=== PATIENT | female | born 1935 | race Caucasian/White ===

== ENCOUNTER 2021-06-20 18:25 | Observation (INO) | payer MEDICARE ==
[~2021-06-20] VITALS: Ht 160 cm; Wt 62.1 kg
[~2021-06-20 18:25] MED LIST: ALBUTEROL0.63 MG/3; AZELASTINE137 MCG/0.; BUPROPION HCL100 MG PO; CALCIUM + VITA1 EACH; DULERA 100 MCG/13 GM; FLUTICASONE PRO16 GM; HYDROCORTISONE28 GM; LEVOTHYROXINE75 MCG PO; NIACIN500 M1 PO; PANTOPRAZOLE SO40 MG PO; PREDNISONE20 MG PO; PREMARIN42.5 GM VG; QUINAPRIL HCL20 MG PO; VITAMIN B-121000 MC1 PO
[2021-06-20 19:06] LABS: BASOPHILS % 0.4 % (0.0-1.0); EOSINOPHILS # (AUTO) 0.2 (0.0-0.4); EOSINOPHILS % 2.6 % (0.0-6.0); HEMATOCRIT 33.8 % (34.2-44.1); LYMPHOCYTES # (AUTO) 2.3 (1.0-3.2); LYMPHOCYTES % 31.2 % (18.0-39.1); MEAN CORPUSCULAR HEMOGLOBIN 30.9 pg (28-32); MEAN CORPUSCULAR HGB CONC 32.5 g/dL (31-35); MEAN CORPUSCULAR VOLUME 94.9 fL (81-99); MONOCYTES # (AUTO) 0.7 (0.2-0.8); MONOCYTES % 9.8 % (4.4-11.3); NEUTROPHILS % 55.6 % (38.7-80.0); PLATELET COUNT 164 x10e3/uL (140-360); RED BLOOD COUNT 3.56 x10e6/uL (3.6-5.1); RED CELL DISTRIBUTION WIDTH 12.4 % (11.7-14.4)
[2021-06-20 19:15] LABS: INR 1.35; PROTHROMBIN TIME 16.9 seconds (11.9-14.5)
[2021-06-20 19:16] LABS: PARTIAL THROMBOPLASTIN TIME 34.3 seconds (23.8-35.5)
[2021-06-20 19:27] LABS: ALBUMIN 4.3 g/dL (3.5-5.0); ALBUMIN/GLOBULIN RATIO 1.5 (0.8-2.0); ANION GAP 14.2 mmol/L (8-16); CALCIUM 9.3 mg/dL (8.4-10.2); CREATININE, SERUM 1.34 mg/dL (0.57-1.11); POTASSIUM 4.2 mmol/L (3.5-5.1)
[2021-06-20 19:35] LABS: CREATINE KINASE MB 1.6 ng/mL (0-5.0)
[2021-06-20] MEDS ORDERED: ONDANSETRON HCL INJ 2MG/ML 2ML 2 MG/ML VIAL IV PRN (20:30)
[2021-06-20] MEDS ORDERED: CLONIDINE HCL 0.1 MG TAB PO PRN (21:30)
[2021-06-20] MEDS ORDERED: ACETAMINOPHEN 325 MG TAB PO PRN (21:30)
[2021-06-20] MEDS: ISOSORBIDE DINITRATE 20 MG TAB PO SCH (21:42)
[2021-06-20] MEDS: HYDRALAZINE HCL 25 MG TAB PO SCH (21:43)
[2021-06-20] MEDS: CARVEDILOL 3.125 MG TAB PO SCH (21:43)
[2021-06-20] MEDS ORDERED: ELIQUIS5 MG PO (22:08)
[2021-06-20] MEDS ORDERED: ASCORBIC ACID500 M2 PO (22:08)
[2021-06-20] MEDS ORDERED: CARVEDILOL12.5 MG PO (22:08)
[2021-06-20] MEDS ORDERED: CHLORTHALIDONE25 MG (22:08)
[2021-06-20] MEDS ORDERED: ATORVASTATIN CA20 MG PO (22:08)
[2021-06-20] MEDS ORDERED: PROPAFENONE HC325 MG PO (22:08)
[2021-06-20] MEDS ORDERED: LOSARTAN POTAS100 MG PO (22:08)
[2021-06-20 23:12] VITALS: BP 123/55
[2021-06-21 04:54] VITALS: BP 122/59
[2021-06-21 05:32] LABS: BASOPHILS % 0.6 % (0.0-1.0); EOSINOPHILS # (AUTO) 0.2 (0.0-0.4); EOSINOPHILS % 3.3 % (0.0-6.0); HEMATOCRIT 28.3 % (34.2-44.1); HEMOGLOBIN 9.2 g/dL (12.0-16.0); LYMPHOCYTES # (AUTO) 1.7 (1.0-3.2); LYMPHOCYTES % 32.5 % (18.0-39.1); MEAN CORPUSCULAR HEMOGLOBIN 30.9 pg (28-32); MEAN CORPUSCULAR HGB CONC 32.5 g/dL (31-35); MONOCYTES # (AUTO) 0.5 (0.2-0.8); MONOCYTES % 9.3 % (4.4-11.3); NEUTROPHILS # (AUTO) 2.8 (2.1-6.9); NEUTROPHILS % 54.1 % (38.7-80.0); PLATELET COUNT 139 x10e3/uL (140-360); RED BLOOD COUNT 2.98 x10e6/uL (3.6-5.1); RED CELL DISTRIBUTION WIDTH 12.5 % (11.7-14.4)
[2021-06-21] MEDS: LEVOTHYROXINE SODIUM 75 MCG TAB PO SCH (06:01)
[2021-06-21 06:03] LABS: ANION GAP 12.6 mmol/L (8-16); CALCIUM 8.6 mg/dL (8.4-10.2); CREATININE, SERUM 1.25 mg/dL (0.57-1.11); MAGNESIUM 1.5 MG/DL (1.3-2.1); POTASSIUM 3.6 mmol/L (3.5-5.1)
[2021-06-21 06:04] LABS: CHOL/HDL RATIO 4.6 (3.0-3.6)
[2021-06-21 06:29] LABS: THYROID STIMULATING HORMONE 4.168 uIU/mL (0.350-4.940)
[2021-06-21 07:42] VITALS: BP 130/48
[2021-06-21] MEDS ORDERED: INFLUENZA VIRUS VAC SPLIT INJ 0.5 ML SYR IM SCH (08:00)
[2021-06-21] MEDS ORDERED: PNEUMOCOCCAL VACCINE POLYVALENT 23 MCG/0.5 ML VIAL IM SCH (08:00)
[2021-06-21] MEDS: CARVEDILOL 3.125 MG TAB PO SCH ×2 (08:58→16:40)
[2021-06-21] MEDS: HYDRALAZINE HCL 25 MG TAB PO SCH (08:58)
[2021-06-21] MEDS: ISOSORBIDE DINITRATE 20 MG TAB PO SCH (08:59)
[2021-06-21 10:16] VITALS: BP 130/48
[2021-06-21 11:57] VITALS: BP 137/51
[2021-06-21 15:46] VITALS: BP 154/56
[2021-06-21 20:00] VITALS: BP 152/53
[2021-06-21] MEDS: APIXAB 2.5 MG TABLET PO SCH (20:30)
[2021-06-21] MEDS ORDERED: CARVEDILOL 3.125 MG TAB PO ONE (20:45)
[2021-06-21] MEDS ORDERED: ATORVASTATIN 20 MG TAB PO SCH (21:00)
[2021-06-21] MEDS: LOSARTAN POTASSIUM 25 MG TAB PO SCH (21:45)
[2021-06-22] VITALS (10 sets, daily range): BP systolic 116–174; BP diastolic 53–101
[2021-06-22] MEDS: LEVOTHYROXINE SODIUM 75 MCG TAB PO SCH (05:38)
[2021-06-22] MEDS: LOSARTAN POTASSIUM 25 MG TAB PO SCH ×2 (08:23→18:01)
[2021-06-22] MEDS: CARVEDILOL 3.125 MG TAB PO SCH ×2 (08:23→18:01)
[2021-06-22] MEDS: APIXAB 2.5 MG TABLET PO SCH ×2 (08:23→18:01)
[2021-06-22] MEDS ORDERED: AMLODIPINE BESYLATE 5 MG TAB PO SCH (18:15)
[2021-06-22] MEDS ORDERED: ASPIRIN 81 MG CHEW TAB PO SCH (18:15)
[2021-06-22] MEDS ORDERED: ASPIRIN CHEW81 MG PO (19:38)
[2021-06-22] MEDS ORDERED: ELIQUIS2.5 MG PO (19:38)
[2021-06-22] MEDS ORDERED: NORVASC5 MG PO (19:38)
[2021-06-23] MEDS ORDERED: CARVEDILOL 12.5 MG TAB PO SCH (09:00)
== END 2021-06-22 20:25 | disposition home or self-care (01) ==
LOC: ER 18:33 → ERHOLD 20:22 → MED/SURG3 21:30
PROVIDERS: ADMIT Internal Medicine; ATTEND Internal Medicine
DX: R07.89 Other chest pain (principal); I49.5 Sick sinus syndrome; I48.0 Paroxysmal atrial fibrillation; I10 Essential (primary) hypertension; D64.9 Anemia, unspecified; E11.9 Type 2 diabetes mellitus without complications; J44.9 Chronic obstructive pulmonary disease, unspecified; E03.9 Hypothyroidism, unspecified; K21.9 Gastro-esophageal reflux disease without esophagitis; E78.5 Hyperlipidemia, unspecified; Z90.49 Acquired absence of other specified parts of digestive tract; Z95.810 Presence of automatic (implantable) cardiac defibrillator; Z88.1 Allergy status to other antibiotic agents; Z20.822 Contact with and (suspected) exposure to COVID-19; Z79.82 Long term (current) use of aspirin
CPT/HCPCS: 36415 ×2; 71045; 80048; 80053; 80061; 82550; 82553; 83735; 84443; 84484 ×2; 85025 ×2; 85610; 85730; 93005; 93306; 99284; G0378 ×3; U0002